=== PATIENT | male | born 1990 | race African-American/Black ===

== ENCOUNTER → 2023-06-12 | Outpatient (CLI) | payer OTHER | LOC: COL.CARD 09:30 | DX: R55 Syncope and collapse (principal); R53.83 Other fatigue ==

== ENCOUNTER → 2023-11-05 | Outpatient (CLI) | payer OTHER ==
[~2023-11-05] MED LIST: Iohexol 300 - 10 ML VIAL ONE
== END ==
LOC: MHCPAIN 12:59
DX: M46.1 Sacroiliitis, not elsewhere classified (principal); M53.3 Sacrococcygeal disorders, not elsewhere classified; M54.50 Low back pain, unspecified
CPT/HCPCS: G0260; J0665; J1040; Q9967

== ENCOUNTER → 2023-12-05 | Outpatient (CLI) | payer OTHER | LOC: MHCPAIN 08:30 | DX: M48.061 Spinal stenosis, lumbar region without neurogenic claudication (principal); M47.896 Other spondylosis, lumbar region | CPT/HCPCS: G0463 ==